=== PATIENT | female | born 1955 | race Asian ===

== ENCOUNTER → 2016-09-13 | Outpatient (CLI) | payer OTHER | LOC: BRMIMAGING 09:07 | DX: N63 Unspecified lump in breast (principal) | CPT/HCPCS: G0206 ==

== ENCOUNTER → 2017-03-22 | Outpatient (CLI) | payer OTHER | LOC: BRMIMAGING 10:57 | PROVIDERS: ATTEND Family Medicine | DX: Z12.31 Encounter for screening mammogram for malignant neoplasm of breast (principal) | CPT/HCPCS: G0202 ==

== ENCOUNTER → 2018-03-23 | Outpatient (CLI) | payer OTHER | LOC: BRMIMAGING 08:08 | PROVIDERS: ATTEND Family Medicine | DX: Z12.31 Encounter for screening mammogram for malignant neoplasm of breast (principal) ==